=== PATIENT | male | born 1955 | race Two or more races ===

== ENCOUNTER 2022-07-17 11:31 | Emergency (ER) | payer OTHER ==
[~2022-07-17] VITALS: Ht 165.1 cm; Wt 75.7 kg
[2022-07-17] MEDS ORDERED: SIMVASTATIN40 MG PO (11:42)
== END 2022-07-18 01:38 | disposition designated cancer center or children's hospital (05) ==
LOC: ER 11:31
DX: G91.9 Hydrocephalus, unspecified (principal); R51.9 Headache, unspecified
CPT/HCPCS: 70552

== ENCOUNTER 2024-12-28 10:38 | Outpatient (CLI) | payer OTHER ==
[~2024-12-28 10:38] MED LIST: SIMVASTATIN40 MG PO
== END 2024-12-28 10:44 | disposition home or self-care (01) ==
LOC: SONOGRAMA 10:38
PROVIDERS: ATTEND Specialist
DX: N17.9 Acute kidney failure, unspecified (principal); N18.31 Chronic kidney disease, stage 3a

== ENCOUNTER 2025-03-17 12:42 | Emergency (ER) | payer OTHER ==
[~2025-03-17] VITALS: Ht 170.2 cm; Wt 66.7 kg
[2025-03-17] MEDS ORDERED: GENTAMICIN SULFATE 0.15 MG/DR DROPS 5ML OP STA (14:36)
[2025-03-17 15:01] LABS: BASO % 0.4 % (0.1-1.2); EOS # 0.01 (0.04-0.54); EOS % 0.1 % (0.7-7.0); LYMPH # 0.97 (1.18-3.74); LYMPH % 11.6 % (19.3-53.1); MEAN PLATELET VOLUME 8.40 fl (9.4-12.4); MONO # 0.93 (0.24-0.82); MONO % 11.1 % (4.7-12.5); NEUT # 6.40 (1.56-6.13); NEUT % 76.4 % (34.0-71.1); RED CELL DISTRIBUTION WIDTH 12.4 % (11.6-14.4)
[2025-03-17 15:31] LABS: ALT/SGPT 51.0 U/L (12-78); AST/SGOT 31.0 U/L (15-37); BILIRUBIN TOTAL 0.43 mg/dL (0.3-1.2); BUN CREA RATIO 15.0 (7.0-25.0); CREATININE SERUM 1.39 mg/dL (0.70-1.30); GFR 50.23; GLOBULINA 5.4 G/DL (2.4-3.5); GLUCOSE FASTING 126.0 mg/dL (65-100); OSMOLALITY SERUM 275.0 MOSM/KG (275-295)
[2025-03-17 15:39] LABS: URINE APPEARANCE Clear; URINE BILIRRUBIN Negative (NEGATIVE); URINE BLOOD Small; URINE COLOR Dark Yellow; URINE GLUCOSE Negative (NEGATIVE); URINE KETONE 15 (NEGATIVE); URINE LEUKOCYTE Negative; URINE NITRATE Negative; URINE UROBILINOGEN 1.0 E.U./dl
[2025-03-17 15:42] LABS: URINE BACTERIA 50.3 uL (0.0-1933); URINE CAST 7.18 uL (0.0-1.40); URINE EPITHELIAL CELLS 19.9 uL (0.0-38.8); URINE RBC 3.6 uL (0.0-20.8); URINE WBC 7.8 uL (0.0-23.2)
[2025-03-17 15:59] LABS: URINE CRYSTALS FEW /HPF; URINE PROTEIN 100 (NEGATIVE)
[2025-03-17 16:01] LABS: TYPE CELLS SQUAMOUS; URINE MUCUS SCANT
[2025-03-17 16:02] LABS: COVID-19 AG NEGATIVE (NEGATIVE)
== END 2025-03-17 16:47 | disposition home or self-care (01) ==
LOC: ER 12:42
PROVIDERS: General Practice
DX: H10.89 Other conjunctivitis (principal); R53.1 Weakness; Z20.822 Contact with and (suspected) exposure to COVID-19